=== PATIENT | female | born 1975 | race American Indian/Alaskan Native ===

== ENCOUNTER 2018-11-07 09:40 | Emergency (ER) | payer OTHER ==
[2018-11-07 09:48] VITALS: BP 173/98
[2018-11-07] MEDS ORDERED: IBUPROFEN PO ONE (10:33)
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
== END 2018-11-07 13:16 | disposition home or self-care (01) ==
LOC: ED 09:40
DX: S39.012A Strain of muscle, fascia and tendon of lower back, initial encounter (principal); S13.4XXA Sprain of ligaments of cervical spine, initial encounter; V49.49XA Driver injured in collision with other motor vehicles in traffic accident, initial encounter; Y93.89 Activity, other specified; Y92.488 Other paved roadways as the place of occurrence of the external cause; Y99.8 Other external cause status
CPT/HCPCS: 72040; 72100